=== PATIENT | female | born 1940 | race Caucasian/White ===

== ENCOUNTER 2022-05-15 08:51 | Inpatient (IN) | payer OTHER, MEDICAID ==
[~2022-05-15] VITALS: Ht 154.9 cm; Wt 65.8 kg
[2022-05-15] MEDS ORDERED: ACETAMINOPHEN 500 MG TAB PO ONE (09:15)
[2022-05-15] MEDS ORDERED: ONDANSETRON HCL 4 MG/2 ML VIAL IV ONE (11:30)
[2022-05-15] MEDS ORDERED: MORPHINE SULFATE 4 MG/ML SYR/VIAL IV ONE (11:30)
[2022-05-15 12:07] LABS: Basophils # (auto) 0.1 10 ^3/uL (0-0.2); Basophils % (auto) 0.6 % (0.0-2.0); Eosinophils # (auto) 0 10 ^3/uL (0-0.8); Eosinophils % (auto) 0.4 % (0.0-7.0); Hematocrit 43.4 % (36.0-46.0); Hemoglobin 13.8 g/dL (12.2-16.2); Lymphocytes # (auto) 0.9 10 ^3/uL (0.4-5.4); Lymphocytes % (auto) 9.3 % (10.0-50.0); Mean Corpuscular Hemoglobin 30.3 pg (28.0-32.0); Mean Corpuscular Hgb Conc. 31.7 g/dL (32.0-36.0); Mean Corpuscular Volume 95.5 fL (80.0-100.0); Monocytes # (auto) 0.5 10 ^3/uL (0-1.3); Monocytes % (auto) 5.2 % (0.0-12.0); Neutrophils # (auto) 8.1 10 ^3/uL (1.6-8.6); Neutrophils % (auto) 84.5 % (37.0-80.0); Red Blood Cells 4.55 10^6/uL (4.0-5.20); White Blood Cell 9.6 10^3/uL (4.4-10.8)
[2022-05-15 12:12] LABS: Albumin 3.7 g/dL (3.4-5.0); Calcium 9.2 mg/dL (8.5-10.1); Potassium 3.8 mmol/L (3.5-5.1)
[2022-05-15 12:15] LABS: Bilirubin, Total 0.3 mg/dL (0.2-1.0); Total Protein 7.2 g/dL (6.4-8.2)
[2022-05-15 12:21] LABS: INR 0.97 (0.9-1.15); Partial Thromboplastin Time 21.9 sec (24.6-33.4)
[2022-05-15] MEDS ORDERED: ACETAMINOPHEN 325 MG TAB PO PRN (12:30)
[2022-05-15] MEDS ORDERED: HYDROcodone-ACET 5/325MG TAB PO PRN (12:30)
[2022-05-15] MEDS ORDERED: ETOMIDATE (2MG/ML) 20ML VIAL IV ONE (14:45)
[2022-05-15 16:07] LABS: Cholesterol 200 mg/dL (< 200); HDL Cholesterol 92 mg/dL (40-59); LDL Cholesterol 95 mg/dL (< 100); Triglycerides 65 mg/dL (< 150)
[2022-05-15] MEDS ORDERED: hydrALAZINE HCL 20 MG/ML VL IV PRN (16:45)
[2022-05-15] MEDS: ONDANSETRON HCL 4 MG/2 ML VIAL IV PRN (21:51)
[2022-05-15] MEDS: MORPHINE SULFATE INJ 2 MG/ml SYRG IV PRN (21:52)
[2022-05-16 06:05] LABS: Basophils # (auto) 0 10 ^3/uL (0-0.2); Basophils % (auto) 0.7 % (0.0-2.0); Eosinophils # (auto) 0.2 10 ^3/uL (0-0.8); Eosinophils % (auto) 2.7 % (0.0-7.0); Hematocrit 36.1 % (36.0-46.0); Hemoglobin 12.3 g/dL (12.2-16.2); Lymphocytes # (auto) 1.2 10 ^3/uL (0.4-5.4); Lymphocytes % (auto) 17.7 % (10.0-50.0); Mean Corpuscular Hemoglobin 30.8 pg (28.0-32.0); Mean Corpuscular Hgb Conc. 34.1 g/dL (32.0-36.0); Mean Corpuscular Volume 90.1 fL (80.0-100.0); Monocytes # (auto) 0.8 10 ^3/uL (0-1.3); Monocytes % (auto) 12.1 % (0.0-12.0); Neutrophils # (auto) 4.4 10 ^3/uL (1.6-8.6); Neutrophils % (auto) 66.8 % (37.0-80.0); Nucleated Red Blood Cells % 0.1 %; Red Blood Cells 4.01 10^6/uL (4.0-5.20); Red Cell Distribution Width 14.8 % (11.8-14.3); White Blood Cell 6.6 10^3/uL (4.4-10.8)
[2022-05-16 06:23] LABS: Potassium 3.9 mmol/L (3.5-5.1)
[2022-05-16 06:30] LABS: Albumin 3.1 g/dL (3.4-5.0); BUN/Creatinine Ratio 15.8; Bilirubin, Total 0.4 mg/dL (0.2-1.0); Calcium 8.5 mg/dL (8.5-10.1); Total Protein 6.1 g/dL (6.4-8.2)
[2022-05-16] MEDS: ONDANSETRON HCL 4 MG/2 ML VIAL IV PRN (10:05)
[2022-05-16] MEDS: MORPHINE SULFATE INJ 2 MG/ml SYRG IV PRN (10:07)
[2022-05-16 10:55] VITALS: BP 135/73
[2022-05-16] MEDS ORDERED: HYDR-4902 PO (11:27)
== END 2022-05-16 12:10 | disposition home or self-care (01) | DRG 563 ==
LOC: ER 08:51 → OVERFLOW 12:28
PROVIDERS: ADMIT Registered Nurse; ATTEND Internal Medicine
DX: S43.015A Anterior dislocation of left humerus, initial encounter (principal); I10 Essential (primary) hypertension; S43.035A Inferior dislocation of left humerus, initial encounter; W01.0XXA Fall on same level from slipping, tripping and stumbling without subsequent striking against object, initial encounter; Z20.822 Contact with and (suspected) exposure to COVID-19; Y93.89 Activity, other specified; Y92.89 Other specified places as the place of occurrence of the external cause; Y99.8 Other external cause status
CPT/HCPCS: 36415; 71045; 73020; 73030; 73060; 80053; 80061; 83036; 84443; 84484; 85025; 85610; 85730; 87426; 93306; 96374; 96375; 97163; G0378; J2405

== ENCOUNTER 2023-04-29 17:19 | Emergency (ER) | payer OTHER, MEDICAID ==
[~2023-04-29] VITALS: Ht 154.9 cm; Wt 64.5 kg
[~2023-04-29 17:19] MED LIST: HYDR-4902 PO
[2023-04-29 18:48] VITALS: BP 165/88; PULSE 83; RESP 15; TEMP 97.9; O2SAT 96
[2023-04-29] MEDS ORDERED: KETOROLAC TROMETH 30 MG/ML 1ML VIAL IV ONE (19:45)
[2023-04-29] MEDS ORDERED: ACET-1304 PO (20:58)
== END 2023-04-29 21:12 | disposition home or self-care (01) ==
LOC: ER 17:19
DX: S00.03XA Contusion of scalp, initial encounter (principal); M25.512 Pain in left shoulder; M25.552 Pain in left hip; I10 Essential (primary) hypertension; Z79.899 Other long term (current) drug therapy; W01.0XXA Fall on same level from slipping, tripping and stumbling without subsequent striking against object, initial encounter; Y93.89 Activity, other specified; Y92.89 Other specified places as the place of occurrence of the external cause; Y99.8 Other external cause status
CPT/HCPCS: 70450; 73020; 73502; 96372; 99285; J1885